=== PATIENT | male | born 1995 | race Hispanic/Latino ===

== ENCOUNTER 2018-02-12 17:10 | Emergency (ER) | payer SELFPAY ==
[2018-02-12] MEDS ORDERED: Lidocaine 1% PF 5 ML VIAL ONE ×3 (17:37→18:35)
[2018-02-12] MEDS ORDERED: HYDROcodone/Acetaminophen 10/325 mg Tablet ONE (17:47)
--- NOTE | 2018-02-12 19:45 | RAD ---
LEFT THUMB RADIOGRAPHS THREE VIEWS: 02/12/2018 PROVIDED CLINICAL HISTORY: Left thumb pain, status post injury. FINDINGS: There is a comminuted, mildly displaced fracture of the thumb distal phalanx, in the region of the te rminal tuft. No definite additional fracture, with limitations due to patient motion on the oblique view. IMPRESSION: Comminuted, mildly displaced fracture of the thumb terminal tuft. POS: DWIGHT
== END 2018-02-12 19:07 | disposition home or self-care (01) ==
LOC: ERS 17:10
DX: S62.522A Displaced fracture of distal phalanx of left thumb, initial encounter for closed fracture (principal); W22.8XXA Striking against or struck by other objects, initial encounter; Y92.69 Other specified industrial and construction area as the place of occurrence of the external cause
CPT/HCPCS: 11760; J2001